=== PATIENT | female | born 1980 | race Caucasian/White ===

== ENCOUNTER 2016-06-21 10:46 | Emergency (ER) | payer OTHER ==
[2016-06-21 11:24] VITALS: BP 136/90; PULSE 88; RESP 20; TEMP 99.5
--- NOTE | 2016-06-21 12:35 | XR ---
EXAMINATION TYPE: XR knee complete RT DATE OF EXAM: 06/21/2016 12:25 PM COMPARISON: NONE HISTORY: Pain, fall TECHNIQUE: 3 view right knee FINDINGS: Joint spaces are preserved. No acute fractures are evident. No joint effusion is evident. IMPRESSION: 1. Normal three-view right knee. 2. Follow-up exams can be performed 7-10 days from acute trauma for continued pain.
--- NOTE | 2016-06-21 13:12 | ED ---
Lower Extremity Injury HPI - General Chief Complaint: Extremity Injury, Lower Stated Complaint: FALL, RT LEG/KNEE INJURY Time Seen by Provider: 06/21/16 11:49 Source: patient Mode of arrival: wheelchair Limitations: no limitations - History of Present Illness Initial Comments: This 35-year-old white female presents with a complaint of a right knee injury. This occurred yesterday. She states that she was rollerskating with her children and landed directly on her knee. She was able to ambulate on it yesterday but not today. She complains of swelling. She has significant pain with any movement. She has tried to elevate the leg this past evening. She has not taken any medications for it as of yet. She denies any other injuries. No other complaints or modifying factors. - Related Data Home Medications Medication Instructions Recorded Confirmed No Known Home Medications [No 06/21/16 06/21/16 Known Home Medications] Allergies Allergy/AdvReac Type Severity Reaction Status Date / Time coconut Allergy Swelling Verified 06/21/16 12:13 codeine Allergy Rash/Hives Verified 06/21/16 12:13 morphine Allergy Rash/Hives Verified 06/21/16 12:13 peas Allergy Swelling Verified 06/21/16 12:13 Penicillins Allergy Rash/Hives Verified 06/21/16 12:13 pineapple Allergy Swelling Verified 06/21/16 12:13 shellfish derived [Shellfish] Allergy Unknown Verified 06/21/16 12:13 tree nut [Nut] Allergy Unknown Verified 06/21/16 12:13 wheat Allergy Vomiting Verified 06/21/16 12:13 Review of Systems ROS Statement: Those systems with pertinent positive or pertinent negative responses have been documented in the HPI. ROS Other: All systems not noted in ROS Statement are negative. Past Medical History Additional Past Medical History / Comment(s): factor 5 leiden, thrombophilia History of Any Multi-Drug Resistant Organisms: None Reported Past Surgical History: Appendectomy, Section, Cholecystectomy, Tubal Ligation Additional Past Surgical History / Comment(s): wisdom teeth Past Psychological History: No Psychological Hx Reported Smoking Status: Never smoker Past Alcohol Use History: None Reported Past Drug Use History: None Reported General Exam Limitations: no limitations General appearance: alert, in no apparent distress Extremities exam: Present: tenderness (There is diffuse tenderness present to the right knee. There is a mild effusion noted. There is pain with any movement. It is difficult to assess all ligaments due to the amount of pain. There is a very mild abrasion present over the patella. Strength is intact for flexion and extension but this does cause significant pain.) Neurological exam: Present: alert, oriented X3. Absent: motor sensory deficit Psychiatric exam: Present: normal affect, normal mood Skin exam: Present: abrasion (There is a mild abrasion noted over the patella on the right knee.) Course Vital Signs 06/21/16 11:19 Temperature 99.5 F Pulse Rate 88 Respiratory 20 Rate Blood Pressure 136/90 O2 Sat by Pulse 100 Oximetry Medical Decision Making - Medical Decision Making The patient was seen and examined. All diagnostics were reviewed. A x-ray of the right knee was done and this does not show any evidence of fracture. It is felt as though patient likely does have some type of internal derangement of the ligaments or cartilage of the right knee. It is felt as though she would benefit from crutches, and knee immobilizer, orthopedic evaluation, and an MRI scan. She refuses any pain medications and would prefer to utilize Motrin and/ or, [id number]. She leaves in no severe distress. Disposition Clinical Impression: Right knee sprain Disposition: HOME SELF-CARE Condition: Good Instructions: Knee Sprain (ED), Crutch Instructions (ED), Knee Immobilizer (ED) , Magnetic Resonance Imaging (ED) Additional Instructions: Please utilize Tylenol and/or Motrin as needed for pain. Please obtain the knee immobilizer and crutch prescription at a medical supply store. Please obtain the MRI scan as soon as possible. Referrals: Rufus Grijalva MD [STAFF PHYSICIAN] - 06/26/16 Crystal Vail DO [REFERRING] - 06/23/16 Time of Disposition: 13:12
== END 2016-06-21 13:26 | disposition home or self-care (01) ==
LOC: EC 10:46
DX: S83.91XA Sprain of unspecified site of right knee, initial encounter (principal); Z91.013 Allergy to seafood; W18.30XA Fall on same level, unspecified, initial encounter; Y93.51 Activity, roller skating (inline) and skateboarding; Z88.5 Allergy status to narcotic agent; Z91.018 Allergy to other foods; Z88.0 Allergy status to penicillin; S80.211A Abrasion, right knee, initial encounter
CPT/HCPCS: 99283